=== PATIENT | male | born 1990 | race Caucasian/White ===

== ENCOUNTER 2018-08-02 10:12 | Emergency (ER) | payer SELFPAY ==
[~2018-08-02 10:12] MED LIST: levETIRAcetam 500 MG TAB PO SCH
[2018-08-02 10:41] LABS: PLATELET COUNT 268 10^3/uL (150-400)
[2018-08-02] MEDS ORDERED: ONDANSETRON 4 MG/2 ML VIAL IVP ONE (11:47)
[2018-08-02] MEDS ORDERED: NS 1,000 ML IV ONE (11:47)
[2018-08-02] MEDS ORDERED: PROMETHAZINE HCL 25 MG/ML INJ IVP ONE (11:47)
--- NOTE | 2018-08-02 11:47 | EDPHY ---
General - History Smoking Status: Current some day smoker Time Seen by Provider: 08/02/18 11:36 Narrative: CHIEF COMPLAINT: "I am sick, I am dying" HISTORY OF PRESENT ILLNESS: Patient presents with complaints of "I am sick, I am dying." He lab rates that he has had nausea, vomiting diarrhea over the past few days. He reports severe abdominal pain that is generalized. No trauma or injury. No blood in stools or emesis. He also reports a possible seizure yesterday, and that he has been off his medication for nearly a year. He states he is currently homeless and has no money for his medications or care. He has no modifying factors. No position of comfort. No other associated complaints or modifying factors REVIEW OF SYSTEMS: 10 systems were reviewed and negative with the exception of the elements mentioned in the history of present illness. PCP: None SPECIALISTS: None PAST MEDICAL HISTORY: Seizure disorder PAST SURGICAL HISTORY: No recent surgical history SOCIAL HISTORY: Currently homeless FAMILY HISTORY: Noncontributory EXAMINATION: General Appearance: Alert, no distress. Unkempt. Ambulatory without difficulty. Presents with his daughter at bedside Head: normocephalic, atraumatic Eyes: Pupils equal and round, no conjunctival pallor or injection ENT, Mouth: Mucous membranes moist Neck: Normal inspection, supple, non-tender Respiratory: Lungs are clear to auscultation Cardiovascular: Regular rate and rhythm. No murmur Gastrointestinal: Abdomen is soft and nondistended. There is tenderness out of proportion to examination all 4 quadrants. Voluntary guarding in all 4 quadrants. No tympany rigidity. No CVA tenderness. Bowel sounds present all 4 quadrants Back: non-tender, no bony abnormalities Neurological: A&O, nonfocal, normal gait Skin: Unclean but grossly intact. Warm and dry, no rash Extremities: Nontender, no pedal edema Psychiatric: Mood and affect normal DIFFERENTIAL DIAGNOSES: Including but not limited to gastroenteritis, enteritis, colitis, diverticulitis , appendicitis, dehydration, gastritis MDM: 11:35 a.m. Suspected gastroenteritis with abdominal pain out of proportion to examination. I have ordered further medication for him and CT scan the abdomen and pelvis due to the pain. He is mildly dehydrated clinically, but his CBC and chemistry have no abnormalities. He is in no acute distress. He has become very verbally abusive and agitated with me, thus I have left the room and will re- evaluate. 12:45 p.m. Notified by radiologist Dr. Leggett. We discussed the findings of CT scan abdomen pelvis. There is evidence of rectosigmoid colitis. No perforation. No appendicitis. Normal findings of the small bowel. All continue IV fluid and nausea medications for this patient. No indication of acute bacterial infection by history laboratory studies. 1:30 p.m. Patient resting comfortably with IV fluid infusing. 2:00 p.m.. Patient re-evaluated. We discussed discharge with medications provided for nausea vomiting, I will also resume his Keppra prescription for him. I have also provided the on-call neurologist, primary care physician at [facility] from to follow up with. He verbalizes his dissatisfaction for this as he is homeless and was expected to be admitted. I discussed that at this time he does not meet admission criteria and that he will likely resolve with symptomatic care as discussed. We discussed ED precautions. Case management will visit with him. He is well-appearing, vital signs are within limits. He is discharged stable condition. SUPERVISION: Patient was independently examined, but I discussed the case with my secondary supervising physician Dr. Pickard CONSULTATION: None (Prince Recinos) Discussion: The patient was evaluated and managed by the Physician [employer]. I discussed the patient's presentation and course with the midlevel provider with them and agree with the evaluation. My co-signature indicates that I have reviewed this chart and I agree with the findings and plan of care as documented. I am the secondary supervising physician. (Aleshia Pickard) - Objective Vital Signs: Initial Vital Signs Temperature (C) 36.5 C 08/02/18 10:25 Heart Rate 92 08/02/18 10:25 Respiratory Rate 16 08/02/18 10:25 Blood Pressure 126/72 H 08/02/18 10:25 O2 Sat (%) 97 08/02/18 10:25 O2 Delivery Mode Room Air Allergies/Adverse Reactions: amoxicillin Allergy (Verified 06/21/18 14:28) Penicillins Allergy (Verified 06/21/18 14:28) Home Medications: Medication Instructions Recorded [facility] 06/21/18 Ondansetron Odt [Zofran Odt 4 mg 4 mg PO Q6 PRN #12 tab 08/02/18 (*)] Promethazine HCl [Phenergan 25mg 25 mg PO Q8 PRN #12 tab 08/02/18 (*)] levETIRAcetam [Keppra 500 mg (*)] 500 mg PO BID #20 tab 08/02/18 Laboratory Results: Laboratory Results 08/02/18 10:12 08/02/18 10:12 Medications Given: Discontinued Medications Sodium Chloride (Ns) 1,000 mls @ 0 mls/hr IV EDNOW ONE; Wide Open PRN Reason: Protocol Stop: 08/02/18 11:48 Last Admin: 08/02/18 12:22 Dose: 1,000 mls Ondansetron HCl (Zofran) 4 mg IVP EDNOW ONE Stop: 08/02/18 11:48 Last Admin: 08/02/18 12:21 Dose: 4 mg Ondansetron HCl (Zofran Odt 4 Mg Prepack#2) 1 btl TAKEHOME EDNOW ONE Stop: 08/02/18 13:49 Last Admin: 08/02/18 14:57 Dose: 1 btl Promethazine HCl (Phenergan) 12.5 mg IVP ONCE ONE Stop: 08/02/18 11:48 Last Admin: 08/02/18 12:21 Dose: 12.5 mg Promethazine HCl (Phenergan 25 Mg Prepack #4) 1 btl TAKEHOME EDNOW ONE Stop: 08/02/18 13:49 Last Admin: 08/02/18 14:57 Dose: 1 btl Departure - Departure Disposition: Home, Routine, Self-Care Clinical Impression: Colitis, Gastroenteritis Condition: Good Instructions: Ondansetron (By mouth), Promethazine (By injection), Levetiracetam (By mouth), Clear Liquid Diet (ED), Gastroenteritis (ED), Colitis (ED) Additional Instructions: 1. Nausea medications as provided as needed 2. Clear liquid diet, advance slowly as tolerated 3. [facility] for [facility] and to establish her care 4. ED precautions for any worsening pain, fever, bloody stools, intractable vomiting or diarrhea We have provided a cab for you to go to [facility]/ [place] @ [phone] Please check in for Case Management services. I have spoken with Juice ( [employer]) and he will be expecting you Although you will not be able to stay overnight, the case management services are available to you as you determine whether you will stay in [place] or head back to [place] Referrals: [facility],. [Clinic] - As per Instructions Abdoul David MD [[facility] Primary Care Provider] - As per Instructions Evens David MD [Medical Doctor] - As per Instructions Prescriptions: levETIRAcetam [Keppra 500 mg (*)] 500 mg PO BID #20 tab Ondansetron Odt [Zofran Odt 4 mg (*)] 4 mg PO Q6 PRN #12 tab PRN Reason: Nausea/Vomiting, Use 1st Promethazine HCl [Phenergan 25mg (*)] 25 mg PO Q8 PRN #12 tab PRN Reason: Nausea/Vomiting, Use 1st
[2018-08-02] MEDS ORDERED: IOPAMIDOL (ISOVUE-300) 100 ML BTL ONE (11:54)
[2018-08-02] MEDS ORDERED: PROMETHAZINE 25 MG PREPACK #4 BTL TAKEHOME ONE (13:48)
[2018-08-02] MEDS ORDERED: ONDANSETRON 4MG PREPACK#2 BTL TAKEHOME ONE (13:48)
[2018-08-02 15:01] VITALS: BP 118/80
== END 2018-08-02 15:00 | disposition home or self-care (01) ==
LOC: EDUNIT#
DX: K52.9 Noninfective gastroenteritis and colitis, unspecified (principal); G40.909 Epilepsy, unspecified, not intractable, without status epilepticus; E86.9 Volume depletion, unspecified; F17.200 Nicotine dependence, unspecified, uncomplicated; Z59.0 Homelessness
CPT/HCPCS: 96374; J2405; J2550; Q9967

== ENCOUNTER 2018-09-08 16:23 | Emergency (ER) | payer OTHER ==
[2018-09-08] MEDS ORDERED: NS 1,000 ML IV ONE ×2 (16:36→17:34)
[2018-09-08] MEDS ORDERED: levETIRAcetam 1000MG/NACL 100 ML IV ONE (16:36)
--- NOTE | 2018-09-08 16:41 | EDPHY ---
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 Officer reports that the nurse saw him fall to the ground and began to shake. + urinary incontinence. No tongue biting. Patient complaining of midback pain. He reports that he is normally on Keppra, unsure of the dose. Has not taken Keppra in several months. Modifying Factors: None Comment: ROS: A comprehensive 10 system review of systems is otherwise negative aside from elements mentioned in the history of present illness. MEDICAL/SURGICAL/SOCIAL HISTORY: Medical history: seizures, meth use, hep c Surgical history: Denies Social history: Homeless. Current every day smoker. Family history noncontributory. CONSTITUTIONAL: Postictal, cooperative, adult white male, handcuffed to the bed , officer at bedside, awake and alert, no obvious distress HEENT: Atraumatic and normocephalic, PERRL, EOMI. Nares patent; no rhinorrhea; no nasal mucosal edema. Tympanic membranes clear. Oropharynx clear, no exudate and moist pink mucosa. Airway patent. No lymphadenopathy. No meningismus. NECK: supple, no midline tenderness, flexion 45 degrees, extension 45 degrees, right and left lateral flexion 45 degrees. Cardiovascular: Normal S1/S2, regular rate, regular rhythm, without murmur rub or gallop. PULMONARY/CHEST: Symmetrical and nontender. Clear to auscultation bilaterally. Good air movement. No accessory muscle usage. ABDOMEN: Soft, nondistended, nontender, no rebound, no guarding, no peritoneal signs, no masses or organomegaly. No CVAT. BACK: No midline tenderness, thoracic bilateral paraspinous reproducible tenderness; no paraspinous spasm, deep tendon reflexes 2/2, no pain with straight leg raise, No foot drop. Achilles reflexes are equal bilaterally. Able to walk on heels and toes without difficulty. EXTREMITIES: 2/2 pulses, strength 5/5, no deformities, no clubbing, no cyanosis or edema. NEUROLOGICAL: no focal neuro deficits. GCS 15. SKIN: Warm and dry, no erythema. no rash. Good capillary refill. Source: Patient Exam Limitations: No limitations - Personal History Current Tetanus Diphtheria and Acellular Pertussis (TDAP): Yes - Medical/Surgical History Hx Asthma: No Hx Chronic Respiratory Disease: No Hx Diabetes: No Hx Cardiac Disease: No Hx Renal Disease: No Hx Cirrhosis: No Hx Alcoholism: No Hx HIV/AIDS: No Hx Splenectomy or Spleen Trauma: No Other PMH: seizures, meth use, hep c - Social History Smoking Status: Current some day smoker Constitutional: Initial Vital Signs Temperature (C) 37.0 C 09/08/18 16:27 Heart Rate 89 09/08/18 16:27 Respiratory Rate 20 09/08/18 16:27 Blood Pressure 93/45 L 09/08/18 16:27 O2 Sat (%) 99 09/08/18 16:27 O2 Delivery Mode Room Air Allergies/Adverse Reactions: amoxicillin Allergy (Verified 09/08/18 16:29) Penicillins Allergy (Verified 09/08/18 16:29) Home Medications: Medication Instructions Recorded levETIRAcetam [Keppra 500 mg (*)] 500 mg PO BID #30 tab 09/08/18 Medical Decision Making - Diagnostics Imaging Results: Imaging Impressions Lumbar Spine X-Ray 09/08/18 16:45 Impression: 1. There is no acute osseous abnormality identified. 2. Incompletely-imaged opacity at the lateral right lung base. Formal chest radiography (to include PA and lateral views) is suggested. Lumbar Spine (3 Views), at 4:28 PM: There are 5 nonrib-bearing lumbar-type vertebral bodies. The vertebral body heights, posterior alignments, and the disk spaces are preserved. The interpediculate distances are normal. There is no SI joint diastasis. Impression: There is no acute osseous abnormality. Findings were discussed with Kathy Garcia PA-C at 17:47, on 09/08/2018. Thoracic Spine X-Ray 09/08/18 16:45 Impression: 1. There is no acute osseous abnormality identified. 2. Incompletely-imaged opacity at the lateral right lung base. Formal chest radiography (to include PA and lateral views) is suggested. Lumbar Spine (3 Views), at 4:28 PM: There are 5 nonrib-bearing lumbar-type vertebral bodies. The vertebral body heights, posterior alignments, and the disk spaces are preserved. The interpediculate distances are normal. There is no SI joint diastasis. Impression: There is no acute osseous abnormality. Findings were discussed with Kathy Garcia PA-C at 17:47, on 09/08/2018. ED Course/Re-evaluation: Vital signs reviewed upon arrival. Placed on cafeteria monitor. IV access and laboratory studies obtain. Given IV Keppra 1 g and 2 L normal saline. Laboratory studies reviewed. WBC 32 K likely reactive, potassium 3.7, creatinine 1.1, magnesium 1.2. Given IV 2 g magnesium sulfate Thoracic and lumbar x-ray studies my read via PAC shows no fracture. Does show mild degenerative changes and disc space narrowing. 1750: Called by radiologist, Dr. Sahu, who advised that chest x-ray shows small nodule that he recommends follow-up chest x-ray with PA and lateral views in 3-6 months. 1830: Reassessed patient who is talkative and alert and oriented x4. Patient is medically cleared to be discharged back to the long-term. Will give a prescription for Keppra. 1950: Patient currently resting at home. Drinking liquids without any difficulty. Awaiting for transportation back to the long-term. This patient was seen under the supervision of my secondary supervising physician. I evaluated care for this patient independently. Discussed this patient with Dr. Ambrose. Differential Diagnosis: Seizure including but not limited to electrolyte abnormality, alcohol withdrawal , medication noncompliance, head injury, and breakthrough seizure. - Data Points Laboratory Results: Laboratory Results 09/08/18 16:37 09/08/18 16:37 09/08/18 09/08/18 16:37 16:37 WBC 32.82 10^3/uL H 10^3/uL (3.80-9.50) RBC 4.97 10^6/uL 10^6/uL (4.40-6.38) Hgb 15.5 g/dL g/dL (13.7-17.5) Hct 44.3 % % (40.0-51.0) MCV 89.1 fL fL (81.5-99.8) MCH 31.2 pg pg (27.9-34.1) MCHC 35.0 g/dL g/dL (32.4-36.7) RDW 12.7 % % (11.5-15.2) Plt Count 270 10^3/uL 10^3/uL (150-400) MPV 9.8 fL fL (8.7-11.7) Neut % (Auto) Not Reported Lymph % (Auto) Not Reported [place] % (Auto) Not Reported Eos % (Auto) Not Reported Baso % (Auto) Not Reported Nucleat RBC Rel Count Not Reported Absolute Neuts (auto) Not Reported Absolute Lymphs (auto) Not Reported Absolute Monos (auto) Not Reported Absolute Eos (auto) Not Reported Absolute Basos (auto) Not Reported Absolute Nucleated RBC Not Reported Immature Gran % Not Reported Seg Neutrophils % 81.8 % % Band Neutrophils % 2.9 % % Lymphocytes % 8.4 % % Monocytes % 6.9 % % Eosinophils % 0.0 % % Basophils % 0.0 % % Metamyelocytes % 0.0 % % Myelocytes % 0.0 % % Promyelocytes % 0.0 % % Blast Cells % 0.0 % % Immature Gran # Not Reported Absolute Seg Neuts 26.85 10^3/uL H 10^3/uL (1.70-6.50) Absolute Band Neuts 0.95 10^3/uL H 10^3/uL (0.00-0.70) Absolute Lymphocytes 2.76 10^3/uL 10^3/uL (1.00-3.00) Absolute Monocytes 2.26 10^3/uL H 10^3/uL (0.30-0.80) Absolute Eosinophils 0.00 10^3/uL L 10^3/uL (0.03-0.40) Absolute Basophils 0.00 10^3/uL L 10^3/uL (0.02-0.10) Absolute Metamyelocyte 0.00 10^3/mL 10^3/mL (0.00-0.00) Absolute Myelocytes 0.00 10^3/mL 10^3/mL (0.00-0.00) Absolute Promyelocytes 0.00 10^3/uL 10^3/uL (0.00-0.00) Absolute Plasma Cells 0.00 10^3/uL 10^3/uL (0.00-0.00) Nucleated RBCs 0 /100 WBC /100 WBC (0-0) RBC/WBC/PLT Morphology NORMAL (NORMAL) Absolute Blast Cells 0.00 10^3/uL 10^3/uL (0.00-0.00) Plasma Cells % 0.0 % % Platelet Estimate ADEQUATE (ADEQ) Sodium 132 mEq/L L mEq/L (135-145) Potassium 3.7 mEq/L mEq/L (3.3-5.0) Chloride 97 mEq/L mEq/L (97-110) Carbon Dioxide 22 mEq/l mEq/l (22-31) Anion Gap 13 mEq/L mEq/L (6-14) BUN 14 mg/dL mg/dL (7-23) Creatinine 1.1 mg/dL mg/dL (0.7-1.3) Estimated GFR > 60 Glucose 92 mg/dL mg/dL (70-100) Calcium 9.4 mg/dL mg/dL (8.5-10.4) Magnesium 1.2 mg/dL L mg/dL (1.6-2.3) Creatine Kinase 24 IU/L IU/L (0-224) Medications Given: Discontinued Medications Sodium Chloride (Ns) 1,000 mls @ 0 mls/hr IV EDNOW ONE; Wide Open PRN Reason: Protocol Stop: 09/08/18 16:37 Last Admin: 09/08/18 16:43 Dose: 1,000 mls Levetiracetam (Keppra (Premix)) 100 mls @ 400 mls/hr IV EDNOW ONE Stop: 09/08/18 16:50 Last Admin: 09/08/18 17:02 Dose: 100 mls Magnesium Sulfate (Magnesium Sulf 2 Gm (Premix)) 50 mls @ 50 mls/hr IV EDNOW ONE Stop: 09/08/18 18:16 Last Admin: 09/08/18 17:30 Dose: 50 mls Sodium Chloride (Ns) 1,000 mls @ 0 mls/hr IV EDNOW ONE; Wide Open PRN Reason: Protocol Stop: 09/08/18 17:35 Last Admin: 09/08/18 17:48 Dose: 1,000 mls Departure - Departure Disposition: Law Enforcement/Court/Long-Term Clinical Impression: Seizure disorder, Nonadherence to medication, Lung nodule seen on imaging study , Hypomagnesemia Condition: Good Instructions: Epilepsy (ED), Hypomagnesemia (ED), Pulmonary Nodules (ED) Additional Instructions: Take Keppra 500 mg twice daily. Follow-up with Neurology as needed. Lung nodule seen on chest x-ray. Recommend repeat chest x-ray with PA and lateral views in 3-6 months. Establish primary care at the [facility]. Medically Cleared for discharge to long-term. See [facility] for follow-up instructions and prescriptions. Referrals: Dante Samuels DO [Medical Doctor] - As per Instructions [facility],. [Clinic] - As per Instructions Prescriptions: levETIRAcetam [Keppra 500 mg (*)] 500 mg PO BID #30 tab
[2018-09-08 16:42] LABS: PLATELET COUNT 270 10^3/uL (150-400)
[2018-09-08 17:00] LABS: CREATINE KINASE 24 IU/L (0-224)
[2018-09-08] MEDS ORDERED: MAGNESIUM SULF 2 GM/WATER 50 ML IV ONE (17:17)
[2018-09-08 18:25] VITALS: BP 97/52
== END 2018-09-08 18:50 ==
LOC: EDUNIT#
DX: R56.9 Unspecified convulsions (principal); E83.42 Hypomagnesemia; R91.1 Solitary pulmonary nodule; E86.9 Volume depletion, unspecified; F17.200 Nicotine dependence, unspecified, uncomplicated; F15.10 Other stimulant abuse, uncomplicated
CPT/HCPCS: 96365; J1953; J3475

== ENCOUNTER 2018-09-09 23:38 | Observation (INO) | payer OTHER ==
[2018-09-09] MEDS ORDERED: NS 1,000 ML IV ONE ×2 (23:48)
--- NOTE | 2018-09-09 23:54 | EDPHY ---
H & P Stated Complaint: syncopal episode w/o trauma, RUQ pain, nonproductive cough Time Seen by Provider: 09/09/18 23:43 HPI/ROS: HPI CHIEF COMPLAINT: Syncope, right upper quadrant abdominal pain, cough HISTORY OF PRESENT ILLNESS: 28-year-old male, currently incarcerated, presents emergency room from skilled nursing for 2-3 days of right upper quadrant abdominal pain and a cough. Patient states that he went to go get his medications tonight he had a syncopal episode. He also had about a fecal incontinence. Denies any chest pain shortness of breath he does endorse a cough. His main complaint is right upper quadrant abdominal pain 10/10. It has been present for 3 days. No vomiting. Denies diarrhea. Denies chest pain. Past Medical History: Hepatitis-C, polysubstance abuse Past Surgical History: No recent surgery Social History: IV drug abuse, methamphetamine abuse. Family History: Noncontributory ROS REVIEW OF SYSTEMS: 10 Systems were reviewed and negative with the exception of the elements mentioned in the history of present illness. Exam Constitutional nontoxic, triage nursing summary reviewed, vital signs reviewed , awake/alert. Eyes normal conjunctivae and sclera, EOMI, PERRLA. HENT normal inspection, atraumatic, moist mucus membranes, no epistaxis, neck supple/ no meningismus, no raccoon eyes. Respiratory clear to auscultation bilaterally, normal breath sounds, no respiratory distress, no wheezing. Cardiovascular rate normal, regular rhythm, no murmur, no edema, distal pulses normal. Gastrointestinal mild tender palpation right upper quadrant,, no rebound, no guarding, normal bowel sounds, no distension, no pulsatile mass. Genitourinary no CVA tenderness. Musculoskeletal no midline vertebral tenderness, full range of motion, no calf swelling, no tenderness of extremities, no meningismus, good pulses, neurovascularly intact. Skin pink, warm, & dry, no rash, skin atraumatic. Neurologic awake, alert and oriented x 3, AAOx3, moves all 4 extremities equally, motor intact, sensory intact, CN II-XII intact, normal cerebellar, normal vision, normal speech. Psychiatric normal mood/affect. Heme/Lymph/Immune no lymphadenopathy. Differential diagnosis includes but is not limited to and in no particular order : Bowel obstruction, appendicitis, gallbladder disease, diverticulitis, colitis , enteritis, perforated viscus, gastritis, GERD, esophagitis, urinary tract infection, pyelonephritis, kidney stones Medical Decision Making: Plan for this patient IV establishment IV fluid bolus , EKG, troponin, electrolytes, LFTs, lipase, ultrasound right upper quadrant, re -evaluate. Re-evaluation: EKG interpretation by me on record in [employer] system. Impression time of EKG 2356, sinus rhythm 87 early Re-aroldo pattern. This EKG was performed due to abdominal pain patient does not have any chest pain. Chest x-ray reviewed this shows a dense right-sided pneumonia. Patient received broad-spectrum antibiotics IV vanc IV cefepime. He has a penicillin allergy. Patient's right upper quadrant ultrasound shows no evidence of acute cholecystitis. The patient's chest x-ray shows a dense right lower lobe pneumonia. This is the cause of the patient's right upper quadrant abdominal pain and right-sided pain. Patient is allergic to penicillin he states that last time he had [place] almost"killed him" Plan for IV Levaquin. Plan for admission. Blood cultures. [id number]: Spoke with Dr. Sears who agrees admit. Source: Patient - Personal History Current Tetanus/Diphtheria Vaccine: No Current Tetanus Diphtheria and Acellular Pertussis (TDAP): No - Medical/Surgical History Hx Asthma: No Hx Chronic Respiratory Disease: No Hx Diabetes: No Hx Cardiac Disease: No Hx Renal Disease: No Hx Cirrhosis: No Hx Alcoholism: No Hx HIV/AIDS: No Hx Splenectomy or Spleen Trauma: No Other PMH: seizures, meth use, hep c, asthma - Social History Smoking Status: Current some day smoker Constitutional: Initial Vital Signs Temperature (C) 37.7 C 09/09/18 23:44 Heart Rate 88 09/09/18 23:44 Respiratory Rate 20 09/09/18 23:44 Blood Pressure 113/67 09/09/18 23:44 O2 Sat (%) 96 09/09/18 23:44 O2 Delivery Mode Room Air Allergies/Adverse Reactions: amoxicillin Allergy (Verified 09/10/18 09:22) Other-Enter Comments Penicillins Allergy (Verified 09/10/18 09:22) Other-Enter Comments Home Medications: Medication Instructions Recorded levETIRAcetam [Keppra 500 mg (*)] 500 mg PO BID #30 tab 09/08/18 Acetaminophen [Tylenol 325mg (*)] 325 mg PO DAILY PRN 09/10/18 Medical Decision Making - Data Points Laboratory Results: Laboratory Results 09/09/18 23:46 09/09/18 23:46 Medications Given: Albuterol (Proventil Neb) 3 ml IH Q2HRS PRN PRN Reason: Short of Breath/Dyspnea Stop: 03/09/19 00:47 Last Admin: 09/10/18 01:18 Dose: 3 ml Enoxaparin Sodium (Lovenox) 40 mg SC DAILY HANNAH Stop: 03/09/19 08:59 Last Admin: 09/10/18 08:57 Dose: 40 mg Sodium Chloride (Ns) 1,000 mls @ 125 mls/hr IV CONT HANNAH Stop: 03/09/19 00:59 Last Admin: 09/10/18 02:51 Dose: 1,000 mls Levofloxacin/Dextrose (Levaquin 750 Mg (Premix)) 150 mls @ 100 mls/hr IV HS HANNAH PRN Reason: Protocol Stop: 10/10/18 20:59 Last Admin: 09/10/18 20:19 Dose: 150 mls Ketorolac Tromethamine (Toradol) 15 mg IVP Q6HRS PRN PRN Reason: Pain, Breakthrough Stop: 09/15/18 05:59 Last Admin: 09/10/18 01:08 Dose: 15 mg Discontinued Medications Sodium Chloride (Ns) 1,000 mls @ 0 mls/hr IV EDNOW ONE; Wide Open PRN Reason: Protocol Stop: 09/09/18 23:49 Last Admin: 09/09/18 23:59 Dose: 1,000 mls Sodium Chloride (Ns) 1,000 mls @ 0 mls/hr IV EDNOW ONE; Wide Open PRN Reason: Protocol Stop: 09/09/18 23:49 Last Admin: 09/10/18 00:02 Dose: 1,000 mls Cefepime HCl 2 gm/ Sodium (Chloride) 100 mls @ 200 mls/hr IV EDNOW ONE PRN Reason: Protocol Stop: 09/10/18 01:02 Last Admin: 09/10/18 03:43 Dose: Not Given Vancomycin/Sodium Chloride (Vancomycin 1 Gm (Premix)) 250 mls @ 250 mls/hr IV EDNOW ONE PRN Reason: Protocol Stop: 09/10/18 01:32 Last Admin: 09/10/18 03:43 Dose: Not Given Levofloxacin/Dextrose (Levaquin 750 Mg (Premix)) 150 mls @ 100 mls/hr IV EDNOW ONE PRN Reason: Protocol Stop: 09/10/18 02:04 Last Admin: 09/10/18 01:01 Dose: 150 mls Point of Care Test Results: Chemistry 09/10/18 00:03 POC Troponin I 0.01 ng/mL ng/mL (0.00-0.08) Departure - Departure Disposition: [facility] Inpatient Acute Clinical Impression: Pneumonia Qualifiers: Pneumonia type: due to unspecified organism Laterality: right Lung location: lower lobe of lung Qualified Code(s): J18.1 - Lobar pneumonia, unspecified organism Condition: Fair
[2018-09-10 00:11] LABS: PLATELET COUNT 190 10^3/uL (150-400)
[2018-09-10 00:21] LABS: INR 1.37 (0.83-1.16)
[2018-09-10] MEDS ORDERED: VANCOMYCIN HCL/NORMAL SALINE 250 ML IV ONE (00:33)
[2018-09-10] MEDS ORDERED: CEFEPIME HCL 2 GM in NS 100 ML IV ONE (00:33)
[2018-09-10] MEDS ORDERED: diphenhydrAMINE 25 MG CAP PO PRN (00:48)
[2018-09-10] MEDS ORDERED: ONDANSETRON 4 MG/2 ML VIAL IVP PRN (00:48)
[2018-09-10] MEDS ORDERED: ALBUTEROL 3 ML DEYVIAL IH PRN (00:48)
[2018-09-10] MEDS ORDERED: ONDANSETRON DISINTEGRATING 4 MG TAB PO PRN (00:48)
[2018-09-10] MEDS ORDERED: ACETAMINOPHEN 325 MG TAB PO PRN (00:48)
[2018-09-10] MEDS ORDERED: KETOROLAC 15 MG/1 ML SDV IVP PRN (00:52)
[2018-09-10] MEDS ORDERED: NS 1,000 ML IV SCH (01:00)
[2018-09-10 05:49] LABS: PLATELET COUNT 168 10^3/uL (150-400)
--- NOTE | 2018-09-10 06:02 | CPEKG ---
Test Reason : OPEN Blood Pressure : / mmHG Vent. Rate : 087 BPM Atrial Rate : 087 BPM P-R Int : 155 ms QRS Dur : 088 ms QT Int : 333 ms P-R-T Axes : 073 076 062 degrees QTc Int : 401 ms Sinus rhythm Borderline ST elevation, anterior leads Confirmed by Maykel Capone ([id number]) on 09/10/2018 6:01:57 AM Referred By: Confirmed By:Maykel Capone
--- NOTE | 2018-09-10 06:52 | GHP ---
DATE OF ADMISSION: 09/10/2018 Patient currently under custody of [facility]. Patient provides history, appears reliable. EMR was reviewed and case discussed with ED provider. CHIEF COMPLAINT: Cough, right upper quadrant, right lower chest wall pain, syncope. HISTORY OF PRESENT ILLNESS: This is a 28-year-old gentleman with past medical history significant fo r HCV, polysubstance abuse, methamphetamines, marijuana, and a history of seizure disorder, who prese nts to the emergency department today from [facility] after patient was noted to have a fever of 102 follow ing a syncopal episode. Patient reports that he has been having lightheadedness with position over t he last 2 days. He has also endorsed a cough and feeling unwell. Patient states he was standing in line, felt significantly lightheaded, sat down on the chair and passed out. Did not hit his head. P atient denies being reported that he had any kind of seizure activity. He currently denies any centr al chest pain, shortness of breath or palpitations. Patient reports a productive cough. REVIEW OF SYSTEMS: Ten-point review of systems negative except as noted above. ALLERGIES: Penicillin. Patient noted to me that he does not recall the exact allergy; however, he d id tell the ER doctor that he would if he received any penicillin. HOME MEDICATIONS: Keppra. Patient does not recall dose. PAST MEDICAL HISTORY: Significant for seizure disorder, HCV, methamphetamine abuse. PAST SURGICAL HISTORY: Patient denies. FAMILY HISTORY: Negative for seizure disorder or other chronic medical problems including CAD or [facility]. SOCIAL HISTORY: Patient currently incarcerated. Has a history of IV drug use including methamphetam ine abuse. He denies any current tobacco or drug use under custody. CODE STATUS: Full. PHYSICAL EXAMINATION: VITAL SIGNS: Upon arrival to the emergency department, blood pressure 113/67, heart rate 88, respiratory rate 20, O2 saturation 96, temperature 37.7. Currently available: Blood pressure 120/73, heart rate 87, respiratory rate 16, O2 saturation 96% on room air, temperature 36.8 . GENERAL: No acute distress. Young adult male is lying quietly in bed. He is disheveled, appears acutely ill but nontoxic. Does appear fatigued but wakes to name and cooperative. HEAD: Normoceph alic, atraumatic. EYES: Extraocular muscles grossly intact. Pupils equal, round, with decreased re activity to light bilaterally and symmetric. No scleral icterus, conjunctival injection. ENT: Muco us membranes appear slightly dry. No oropharyngeal erythema or exudates. Dentition in fair conditio n. NECK: Supple. Trachea midline. CV: Regular rate and rhythm. No murmurs, rubs or gallops appr eciated. No chest wall tenderness to palpation. RESPIRATORY: Unlabored breathing. Patient without any wheezes or rhonchi. He does have crackles in the right lower lung field. ABDOMEN: Positive jacques wel sounds. Soft, nontender to palpation. No rebound, guarding or masses appreciated. : No supr apubic tenderness to palpation. No Gold catheter in place. MUSCULOSKELETAL: Patient able to sit u p independently. Strength 5/5 in upper and lower extremities. NEURO: Grossly nonfocal. No facial drooping. Moves all extremities while lying in bed. PSYCH: Affect is flat. Patient appears fatigu ed and acutely ill but nontoxic. He is otherwise cooperative. LABORATORY STUDIES: WBC is 20.99, H and H 12.9 and 36.2, MCV 88.3, platelet count is 190, no bands. PT is 17.0, INR is 1.37, PTT is 39.8. VBG lactic acid 1.7. Sodium is 131, potassium is 4.2, chloride 100, CO2 is 24, anion gap is 7, BUN 15, creatinine 0.9, GFR greater than 60, glucose 112, calcium 8.9, total bilirubin 0.3, ALT is 24, AST is 22, alk phos is 82 . Troponin is negative. Total protein 5.6, albumin is 2.7, lipase 58. UA: Specific gravity is 1.011, pH is 7.0, urobilinogen 4.0, otherwise negative. U-tox positive for marijuana, otherwise negative. Blood cultures x2 are pending. Chest x-ray: Image reviewed, report is still pending. Patient with a right lower lobe pneumonia, in filtrate. Abdominal ultrasound: Small amount of free fluid near the right lobe of the liver. No other acute f indings. Borderline elongation of the right hepatic lobe, possibly related to Geron[place] lobe or hepatom egaly. EKG: Reviewed myself showing sinus rhythm in the 80s. There are no acute ST changes. Patient has b orderline ST elevation in anterior leads, suspect due to repolarization changes. QTc 401. Compared to EKG from 06/28/2018, does not appear significantly changed. ASSESSMENT AND PLAN: A 28-year-old gentleman who presents with complaints of syncope and cough. 1. Right lower lobe pneumonia. Patient does not meet full criteria for sepsis. His lactate is norm al. The patient does have a leukocytosis nearly 21,000. No acute organ dysfunction ongoing. His O2 saturations have remained well on room air. While blood cultures are pending x2, he has been starte d on Levaquin due to a reported severe allergy to penicillin, but after patient received this he repo rted that he really does not know what his allergy experience is with it. Sputum culture has been or dered. 2. Syncope, likely orthostatic given patient's positional symptoms. He did receive IV fluids. No e vidence or report of seizure-type activity. Plan to continue patient's Keppra once dose can be ascer tained. Will check some orthostatics. 3. Hyponatremia, likely secondary to hypovolemia. Repeat BMP in the morning. 4. Hypoalbuminemia, possibly due to patient's acute illness most likely versus chronic or combinatio n of those. Continue with IV fluid and repeat BMP. 5. Anemia, likely of chronic disease versus acute illness. No evidence of active bleeding at this [place]. Further evaluation by primary provider. CHRONIC MEDICAL ISSUES: 1. Seizure disorder. Continue Keppra as noted above. 2. History of IV drug use. Patient's U-tox negative except for marijuana. He has only been incarce rated for approximately 10 days. 3. Fluid, electrolyte, nutrition. Continue IV fluid hydration overnight. Encourage oral intake onc e patient is feeling a little better. Electrolytes: Replace if needed. Nutrition: Diet as tolerat ed. 4. Prophylaxis. Sequential compression devices, holding anticoagulation as anticipate short hospita l stay and low risk but he is shackled to the bed, but will encourage mobilization several times per day. 5. COR full. DISPOSITION: Patient admitted to observation status on the medical floor and additional studies as n oted above. /[id number]/MODL
[2018-09-10] MEDS: ENOXAPARIN 40 MG/0.4 ML SYR SC SCH (08:57)
--- NOTE | 2018-09-10 09:04 | HOSPPROG ---
Hospitalist Progress Note Assessment/Plan: # RLL pna - suspect aspiration - will cont levaquin (has allergy to pcn) # ?thoracic compr fx - no neuro deficits, no back pain - doubt this is a fracture # HCV - check LFTs - would like outpatient referral to ID # syncope - suspect d/t pna # sz disorder - cont keppra # hx IVDU - cessation; consider HIV screening # hypoNa - resolved Subjective: discussed wtih Dr Sahu; patient denies back pain, weakness or numbness in legs; denies bowel or bladder incontinence Objective: Vital Signs Temp Pulse Resp BP Pulse Ox 36.7 C 73 16 115/76 99 09/10/18 07:17 09/10/18 07:17 09/10/18 07:17 09/10/18 07:17 09/10/18 07:17 Laboratory Results 09/10/18 05:38 09/10/18 05:38 09/09/18 09/10/18 09/11/18 05:59 05:59 05:59 Intake Total 2888 240 Output Total 535 225 Balance 2353 15 PT 17.0 SEC (12.0-15.0) H 09/09/18 23:46 INR 1.37 (0.83-1.16) H 09/09/18 23:46 - Physical Exam Constitutional: no apparent distress, appears nourished Cardiovascular: regular rate and rhythym, no murmur, rub, or gallop Respiratory: no respiratory distress, no rales or rhonchi, clear to auscultation Gastrointestinal: normoactive bowel sounds, soft, non-tender abdomen, No guarding, No rebound, No distension Neurologic: AAOx3, other (no LE weakness or numbness) ICD10 Worksheet Patient Problems: Problems Problem Status Onset Pneumonia Acute
--- NOTE | 2018-09-10 09:51 | ASMTCMCOM ---
CM Note CM Note Notes: Pt is under custody of the [facility] office. He was admitted for pnuemonia, he has a history of IV drug use. He will dc back to snf when medically stable. DC Plan: [facility] Date Signed: 09/10/2018 09:50 AM Electronically Signed By:Zakiya Garcia RN
[2018-09-11 05:27] LABS: PLATELET COUNT 206 10^3/uL (150-400)
[2018-09-11] MEDS ORDERED: NICOTINE POLACRILEX 2 MG GUM B PRN (11:04)
[2018-09-11] MEDS: ENOXAPARIN 40 MG/0.4 ML SYR SC SCH (11:07)
[2018-09-11] MEDS ORDERED: NICOTINE 21 MG/24 HR PATCH TD SCH (11:15)
[2018-09-11 11:55] VITALS: BP 119/76
--- NOTE | 2018-09-11 15:13 | ASMTLACE ---
SHANE Length of stay for Answers: 1 day current admission Comorbidities - select Answers: Other Notes: Hep C; Seizure disorder all that apply # of Emergency department Answers: 3-4 visits in the last 6 months Social determinants Answers: History of substance abuse (ETOH, street drugs, prescription drugs, etc.) Score: 8 Date Signed: 09/11/2018 03:12 PM Electronically Signed By:Zakiya Garcia RN
--- NOTE | 2018-09-11 15:14 | ASMTCMCOM ---
CM Note CM Note Notes: Pt no longer under custody, will dc independent with no needs. CM gave pt a bus pass. Date Signed: 09/11/2018 03:14 PM Electronically Signed By:Zakiya Garcia RN
--- NOTE | 2018-09-12 01:13 | GDS ---
ALL DIAGNOSES: 1. Right lower lobe pneumonia, suspected aspiration. 2. Question of a thoracic compression fracture with clinical findings not consistent with this. 3. Reported hepatitis C. 4. Syncope due to pneumonia. 5. Seizure disorder. 6. History of intravenous drug use. 7. Hyponatremia. HOSPITAL COURSE: A 28-year-old man who presented from prison after having a syncopal episode. Notably , he had a seizure 3 days before, had been seen in the emergency department, restarted on his Keppra. He re-presented with a consolidated right lower lobe pneumonia. His initial white count was 20,000 . Overall he is significantly improved. He has had normalization of his white count. He is on room air. Does not appear dyspneic on discharge. I suspect that this was an aspiration pneumonia as it is already resolving on his chest x-ray. He has an allergy to penicillin, he has been treated with L evaquin. Given the clinical improvement will continue Levaquin. I will give an additional 5 day cou rse of this. I have also given him a prescription for his Keppra, which he does not have. Notably he is homeless, he is quite anxious to leave to track down his van as well as his dog. He fe els strong and able take care of himself. We will give him resources as necessary, though he is not interested in staying in a [place] [facility]. I think that he is safe to be discharged to the street at this [place]. We are attempting to fill his prescriptions here for him as much as possible. Case Management will see him to provide any additional resources as needed. BILLING: I spent more than 30 minutes on the day of discharge coordinating care. /[id number]/MODL
--- NOTE | 2018-09-13 11:38 | HOSPPROG ---
Hospitalist Progress Note Assessment/Plan: reviewed susceptibilities of GAS, may not be covered by levaquin. i attempted to call patient's cell and numbers in chart without success. nursing will attempt to call the patient to discuss. he unfortunately has an allergy to pcn , am not sure exactly what this allergy is. Objective: Vital Signs Temp Pulse Resp BP Pulse Ox 36.9 C 82 22 H 119/76 94 09/11/18 11:50 09/11/18 11:50 09/11/18 11:50 09/11/18 11:50 09/11/18 11:50 Microbiology 09/10/18 07:25 - Final Sputum, Expectorated Laboratory Results 09/11/18 04:15 09/11/18 04:15 09/12/18 09/13/18 09/14/18 05:59 05:59 05:59 Intake Total Output Total Balance PT 17.0 SEC (12.0-15.0) H 09/09/18 23:46 INR 1.37 (0.83-1.16) H 09/09/18 23:46 ICD10 Worksheet Patient Problems: Problems Problem Status Onset Pneumonia Acute
== END 2018-09-11 15:21 | disposition home or self-care (01) ==
LOC: EDUNIT# → EEVIPCON 23:38 → F3E 09-10 01:50
PROVIDERS: ADMIT Family Medicine; ATTEND Family Medicine
DX: J18.1 Lobar pneumonia, unspecified organism (principal); R55 Syncope and collapse; B19.20 Unspecified viral hepatitis C without hepatic coma; G40.909 Epilepsy, unspecified, not intractable, without status epilepticus; E87.1 Hypo-osmolality and hyponatremia; E86.9 Volume depletion, unspecified; F17.200 Nicotine dependence, unspecified, uncomplicated
CPT/HCPCS: 71045; 76705; 93005; 96361; 96372; 96374; 96375; 96376; 99285; G0378; 80305; 84484-PO; J0692; J1650; J1885; J1956; J7613

== ENCOUNTER 2018-10-14 17:12 | Emergency (ER) | payer SELFPAY ==
[2018-10-14] MEDS ORDERED: IBUPROFEN 600 MG TAB PO ONE (18:07)
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
[2018-10-14 19:35] VITALS: BP 135/70
== END 2018-10-14 19:35 ==
DX: F07.81 Postconcussional syndrome (principal); S42.034A Nondisplaced fracture of lateral end of right clavicle, initial encounter for closed fracture; S43.51XA Sprain of right acromioclavicular joint, initial encounter; S50.811A Abrasion of right forearm, initial encounter; S50.812A Abrasion of left forearm, initial encounter; S60.511A Abrasion of right hand, initial encounter; S00.01XA Abrasion of scalp, initial encounter; G40.909 Epilepsy, unspecified, not intractable, without status epilepticus; B19.20 Unspecified viral hepatitis C without hepatic coma; J45.909 Unspecified asthma, uncomplicated; V49.9XXA Car occupant (driver) (passenger) injured in unspecified traffic accident, initial encounter; Y92.9 Unspecified place or not applicable; Y93.9 Activity, unspecified; Y99.9 Unspecified external cause status